=== PATIENT | male | born 1945 | race Two or more races ===

== ENCOUNTER 2019-08-18 15:30 | Emergency (ER) | payer MEDICARE, MEDICAID ==
[~2019-08-18] VITALS: Ht 157.5 cm; Wt 61.7 kg
--- NOTE | 2019-08-18 15:45 | NUR ---
ED Nurse Note: Pt waked into ED with family member w/ c/o R ankle pain from injury. Pt states that got door slammed on R foot 1 week ago and pain 8/10 R ankle. Non-pitting edema R ankle. Dorsalis pulses strong. No acute distress. Yeimy pt.
--- NOTE | 2019-08-18 16:26 | Emergency Room Report ---
History of Present Illness General Chief Complaint: Lower Extremity Injury Present Illness HPI 73 YO Male presents to the ED C/O 04/18 in severity right ankle pain, swelling and tenderness x 1 week. pt. was being transported to dialysis facility by van transport. While getting into the vehicle his right ankle was struck by the van door. he states he heard and felt a "pop/crack" in the right ankle, had onset of pain and progressive localized swelling since. Pt. Denies open wounds or bleeding. Denies bruising. Pt. reports pain is exacerbated upon weight bearing and ambulating. No other aggravating or relieving factors at this time. Has not taken any medications for his pain. Denies paresthesias. Denies falling completely to the ground, denies hitting his head or having a loss of consciousness. Pt. is ambulatory with a walker at home. Allergies: Coded Allergies: No Known Allergies (Unverified , 08/18/19) Patient History Past Medical History: see triage record, DM, dialysis Past Surgical History: none Pertinent Family History: none Social History: Reports: alcohol use Reviewed Nursing Documentation: PMH: Agreed; PSxH: Agreed Nursing Documentation-PMH Hx Diabetes: Yes Review of Systems All Other Systems: negative except mentioned in HPI Physical Exam Vital Signs Date Time Temp Pulse Resp B/P (MAP) Pulse Ox O2 Delivery O2 Flow Rate FiO2 08/18/19 15:37 98.4 78 16 131/62 (85) 96 Room Air Sp02 EP Interpretation: reviewed, normal General Appearance: no apparent distress, alert, GCS 15, non-toxic Head: normocephalic, atraumatic Eyes: bilateral eye normal inspection, bilateral eye PERRL ENT: hearing grossly normal, normal voice Neck: full range of motion, no bony tend Respiratory: lungs clear, normal breath sounds, speaking full sentences Cardiovascular #1: regular rate, rhythm Cardiovascular #2: 2+ dorsalis pedis (R), 2+ dorsalis pedis (L) Genitourinary: normal inspection Musculoskeletal: normal range of motion, tender - lateral right ankle, swelling - lateral right ankle. Neurologic: alert, motor strength/tone normal, oriented x3, sensory intact, responsive, speech normal Psychiatric: judgement/insight normal Skin: normal color, normal inspection, other - no bruises, no erythema. Medical Decision Making PA Attestation Dr. Reyes Is my supervising physician whom pt. management has been discussed with. Diagnostic Impression: Primary Impression: Ankle fracture, right Qualified Codes: S82.891A - Other fracture of right lower leg, initial encounter for closed fracture ER Course 73 YO Male presents to the ED C/O 04/18 in severity right ankle pain, swelling and tenderness x 1 week. pt. was being transported to dialysis facility by van transport. While getting into the vehicle his right ankle was struck by the van door. he states he heard and felt a "pop/crack" in the right ankle, had onset of pain and progressive localized swelling since. Pt. Denies open wounds or bleeding. Denies bruising. Pt. reports pain is exacerbated upon weight bearing and ambulating. No other aggravating or relieving factors at this time. Has not taken any medications for his pain. Denies paresthesias. Denies falling completely to the ground, denies hitting his head or having a loss of consciousness. Pt. is ambulatory with a walker at home. Ddx considered but are not limited to Fracture, dislocation, contusion, Sprain/ Strain/Spasm, Vital signs: are WNL, pt. is afebrile H&PE are most consistent with musculoskeletal injury will perform imaging to r/ o fractures/dislocations. ORDERS: - X-ray right ankle 3 views - fx of the distal fibula ED INTERVENTIONS: -Patient denies any pain medication -Right short leg posterior with stirrup splint applied by phlebotomy technician. Pt. remains neurovascularly intact. -Patient is provided with a cane and instructed on its use Pt. and granddaughter were given orthopedic f/u resources. DISCHARGE: At this time pt. is stable for d/c to home. Will provide printed patient care instructions, and any necessary prescriptions. Care plan and follow up instructions have been discussed with the patient prior to discharge. Other X-Ray Diagnostic Results Other X-Ray Diagnostic Results : X-Ray ordered: Right Ankle # of Views/Limited Vs Complete: 3 View Indication: Pain EP Interpretation: Yes PA Xray: Interpretation reviewed, by supervising MD, and agrees with findings. Interpretation: no dislocation, no soft tissue swelling, other - Distal fibula fx. Impression: Other - fx of the distal fibula Electronically Signed by: Gracy Coffman PA-C Last Vital Signs Date Time Temp Pulse Resp B/P (MAP) Pulse Ox O2 Delivery O2 Flow Rate FiO2 12/10/19 15:37 98.4 78 16 131/62 (85) 96 Room Air Disposition: HOME, SELF-CARE Condition: Stable Scripts Acetaminophen With Codeine (T#3) (TYLENOL #3 TAB*) Y Tab 1 TAB ORAL Q6H PRN for For Pain, #12 TAB Prov: Gracy Coffman 08/18/19 Referrals: NOT CHOSEN IPA/MD,REFERRING (PCP) Patient Instructions: Ankle Fracture Additional Instructions: Take medications as directed. Follow up with an [facility] C[facility]ER in 3-5 days, even if your symptoms have resolved. If symptoms persist MRI may be required at the discretion of your PCP or Ortho Specialist. --Please review list of primary care clinics, if you do not already have a primary care provider who can give you an Orthopedic Referral. Return sooner to ED if new symptoms occur, or current symptoms become worse. Do not drink alcohol, drive, or operate heavy machinery while taking Tylenol # 3 as this may cause drowsiness. - Please note that this Emergency Department Report was dictated using [employer] nurse practitioner technology software, occasionally this can lead to erroneous entry secondary to interpretation by the dictation equipment. Gracy Coffman Aug 18, 2019 16:26
[2019-08-18] MEDS ORDERED: ACETAMINOPHEN-1 EAC1 ORAL (17:39)
--- NOTE | 2019-08-18 17:49 | NUR ---
ER DISCHARGE NOTE: Patient is cleared to be discharged per ERMD, pt is aox4, on room air, with stable vital signs. pt was given dc and prescription instructions, pt was able to verbalize understanding, pt id band and removed. pt is able to ambulate with steady gait. pt took all belongings. Pt cast on R leg completed by diesel technician mechanic.
--- NOTE | 2019-08-18 17:50 | NUR ---
ED Nurse Note: Stefano diego provided for pt.
[2019-08-18 17:51] VITALS: BP 122/69
--- NOTE | 2019-08-18 18:02 | Diagnostic Imaging Report ---
Indication: Right ankle pain Technique: 3 views of the right ankle Comparison: none Findings: There is a minimally displaced oblique fracture of the distal fibula. No definite associated tibial fracture. Plantar spurs are noted. There are vascular calcifications. The joint spaces are preserved Impression: Right distal fibular fracture
== END 2019-08-18 17:51 | disposition home or self-care (01) ==
LOC: EMR 16:02
DX: S82.891A Other fracture of right lower leg, initial encounter for closed fracture (principal); W22.8XXA Striking against or struck by other objects, initial encounter; Y92.9 Unspecified place or not applicable; E11.9 Type 2 diabetes mellitus without complications
CPT/HCPCS: 29515; 99283

== ENCOUNTER 2019-08-25 15:05 | Emergency (ER) | payer MEDICARE, MEDICAID ==
[~2019-08-25] VITALS: Ht 157.5 cm; Wt 63.5 kg
[~2019-08-25 15:05] MED LIST: ACETAMINOPHEN-1 EAC1 ORAL
[2019-08-25 15:35] VITALS: BP 145/65
--- NOTE | 2019-08-25 16:03 | Emergency Room Report ---
History of Present Illness General Chief Complaint: Pain Source: Patient Present Illness HPI 74-year-old male with history of fibular fracture presenting with persistent pain. He did not follow-up as recommended with his orthopedist. He is currently keeping his splint on and ambulating with assistance. He states his pain is to the lateral aspect of the ankle, nonradiating. He denies any skin changes to the foot or the calf. He denies any calf pain. He denies any fevers. Allergies: Coded Allergies: No Known Allergies (Unverified , 08/18/19) Patient History PMH Narrative End-stage renal disease, old CVA Nursing Documentation-PM Past Medical History: No History, Except For Hx Diabetes: Yes Review of Systems Constitutional: Denies: chills, fever Respiratory: Denies: cough, shortness of breath Cardiovascular: Denies: chest pain, palpitations Gastrointestinal: Denies: diarrhea, vomiting Genitourinary: Denies: hematuria, pain Musculoskeletal: Reports: joint pain; Denies: joint swelling Skin: Denies: rash, lesions Neurological: Denies: headache, dizziness Physical Exam Vital Signs Date Time Temp Pulse Resp B/P (MAP) Pulse Ox O2 Delivery O2 Flow Rate FiO2 08/25/19 15:17 98.1 70 17 145/65 (91) 98 Room Air Sp02 EP Interpretation: reviewed General Appearance: well appearing, no apparent distress, non-toxic Head: normocephalic, atraumatic Eyes: bilateral eye normal inspection ENT: hearing grossly normal, EOM grossly intact, moist mucus membranes Neck: supple Respiratory: lungs clear, normal breath sounds, no respiratory distress, speaking full sentences Cardiovascular #1: regular rate, rhythm, normal capillary refill Cardiovascular #2: 2+ radial (R), 2+ radial (L) Gastrointestinal: soft, non-distended Rectal: deferred Musculoskeletal: moves extm spontaneously, no lower extremity edema, other - Right leg in splint, sugar tong. No distal skin changes. Less than 2-second cap refill. Warm to touch. Nontender calf muscle. No lower extremity edema Neurologic: alert, grossly normal Psychiatric: mood/affect normal Skin: warm/dry, normal turgor Medical Decision Making ER Course 74-year-old male presenting with pain to right ankle status post fibular fracture, splinted. Has not followed up with orthopedist. Will repeat x-rays to review for any new injuries. Other X-Ray Diagnostic Results Other X-Ray Diagnostic Results : X-Ray ordered: Ankle Indication: Pain Interpretation: no dislocation, no soft tissue swelling, other - Fracture unchanged from prior Impression: Other - Unchanged Last Vital Signs Date Time Temp Pulse Resp B/P (MAP) Pulse Ox O2 Delivery O2 Flow Rate FiO2 08/25/19 15:35 98.1 70 17 145/65 98 Room Air Reevaluation Impression Patient to be kept in splint and to follow-up with orthopedic in 1 to 2 days for reevaluation. Disposition: HOME, SELF-CARE Condition: Stable Referrals: Orthopedic Urgent Care Patient Instructions: Ankle Fracture Additional Instructions: Please see Ortho clinic or your orthopedist as soon as possible. Carlos Contreras M.D. Aug 25, 2019 16:03
[2019-08-25 17:17] VITALS: BP 132/84
--- NOTE | 2019-08-25 19:16 | Diagnostic Imaging Report ---
Indication: Pain, trauma Technique: 3 views of the right ankle Comparison: none Findings: Overlying plaster cast obscures bony detail. Previously demonstrated distal fibular fracture appears well aligned, barely visible currently. No new fractures. No dislocations. Impression: Limited exam, demonstrating previously demonstrated distal fibular fracture in plaster, good anatomic alignment
== END 2019-08-25 17:17 | disposition home or self-care (01) ==
LOC: EMR 17:14
DX: M25.571 Pain in right ankle and joints of right foot (principal); E11.9 Type 2 diabetes mellitus without complications; N18.6 End stage renal disease; Z86.73 Personal history of transient ischemic attack (TIA), and cerebral infarction without residual deficits
CPT/HCPCS: 99283